=== PATIENT | male | born 1975 | race Caucasian/White ===

== ENCOUNTER 2019-06-05 17:33 | Emergency (ER) | payer SELFPAY ==
[~2019-06-05] VITALS: Ht 175.3 cm; Wt 77.3 kg
[2019-06-05 17:40] VITALS: Ht 175.3 cm; Wt 77.3 kg
[2019-06-05 18:54] LABS: ALBUMIN 3.8 g/dL (3.4-5.0); ALKALINE PHOSPHATASE 76 U/L (46-116); ALT (SGPT) 21 U/L (10-68); AMYLASE - SERUM 24 U/L (25-115); BILIRUBIN - TOTAL 0.22 mg/dL (0.2-1.3); CALC OSMOLALITY 287 mosm/kg (275-300); CARBON DIOXIDE 30.4 mmol/L (21.0-32.0); CHLORIDE - SERUM 106 mmol/L (98-107); CREATININE - SERUM 1.5 mg/dL (0.6-1.3); GLUCOSE 116 mg/dL (74-106); LIPASE 112 U/L (73-393); POTASSIUM - SERUM 5.2 mmol/L (3.5-5.1); PROTEIN - SERUM 7.5 g/dL (6.4-8.2); SODIUM 143 mmol/L (136-145); TROPONIN-I < 0.017 ng/mL (0.000-0.060); UREA NITROGEN 17 mg/dL (7-18); eGFR NON AFRICAN AMERICAN 54 mL/min (90-120)
[2019-06-05 18:59] LABS: BASOPHILS 0.1 % (0-2); HEMATOCRIT 42.9 % (42.0-54.0); HEMOGLOBIN 14.5 g/dL (13.5-17.5); IMMATURE GRANULOCYTES 0.2 % (0-5); LYMPHOCYTES 8.1 % (15-50); MCH 29.1 pg (26.0-34.0); MCHC 33.8 g/dL (31.0-37.0); MCV 86.1 fL (80.0-100.0); MEAN PLATELET VOLUME 9.6 fL (7.4-10.4); MONOCYTES 3.9 % (2-11); NEUTROPHILS 86.7 % (40-80); PLATELET COUNT 194 10x3/uL (130-400); RBC 4.98 10x6/uL (4.20-6.10); RDW 13.5 % (11.5-14.5); WBC 12.2 10x3/uL (4.8-10.8)
[2019-06-05] MEDS ORDERED: ZOFRAN8 MG PO (19:29)
[2019-06-05] MEDS ORDERED: TORADOL10 MG PO (19:29)
[2019-06-05] MEDS ORDERED: FLOMAX0.4 MG PO (19:29)
[2019-06-05 22:14] VITALS: BP 106/80
== END 2019-06-05 19:51 | disposition home or self-care (01) ==
LOC: D.ER 17:33
PROVIDERS: Family Medicine
DX: R10.31 Right lower quadrant pain (principal)